=== PATIENT | female | born 1990 | race African-American/Black ===

== ENCOUNTER 2016-08-10 20:28 | Emergency (ER) | payer MEDICAID ==
[~2016-08-10] VITALS: Ht 160 cm; Wt 84.0 kg
[2016-08-10] MEDS ORDERED: FAMOTIDINE 20MG/2ML VIAL IV ONE (21:00)
[2016-08-10] MEDS ORDERED: EPINEPHRINE 1:1000 1 MG/ML AMP INJ ONE (21:00)
[2016-08-10] MEDS ORDERED: METHYLPREDNISOLONE SOD SUCC 125 MG/2 ML VIAL IV ONE (21:00)
[2016-08-10] MEDS ORDERED: DIPHENHYDRAMINE 50MG/ML VIAL IV ONE (21:00)
[2016-08-11 00:52] VITALS: BP 106/63
== END 2016-08-11 01:05 | disposition home or self-care (01) ==
LOC: ER 20:29
DX: T78.09XA Anaphylactic reaction due to other food products, initial encounter (principal); Z98.890 Other specified postprocedural states
CPT/HCPCS: 96372; 96374; 96375; 99291; J0171; J1200; J2930; J3490; Z7610

== ENCOUNTER 2018-08-09 19:16 | Emergency (ER) | payer MEDICAID ==
[~2018-08-09] VITALS: Ht 160 cm; Wt 91.0 kg
[2018-08-09 23:05] VITALS: BP 110/58
== END 2018-08-10 00:50 | disposition left against medical advice (07) ==
LOC: ER 19:16
DX: G43.909 Migraine, unspecified, not intractable, without status migrainosus (principal); R10.9 Unspecified abdominal pain; Z53.21 Procedure and treatment not carried out due to patient leaving prior to being seen by health care provider

== ENCOUNTER 2025-03-24 18:06 | Emergency (ER) | payer OTHER, MEDICAID ==
[~2025-03-24] VITALS: Ht 170.2 cm; Wt 91.0 kg
[2025-03-24 18:12] VITALS: O2SAT 99
[2025-03-24] MEDS ORDERED: IBUP-1455 MT (20:33)
[2025-03-24] MEDS ORDERED: ACET-2708 MT (20:33)
[2025-03-24] MEDS ORDERED: LIDO-53 TP (20:33)
[2025-03-24] MEDS: KETOROLAC 30MG/ML VIAL IM ONE (20:55)
[2025-03-24] MEDS: ACETAMINOPHEN 500MG TABLET PO ONE (20:56)
[2025-03-24] MEDS: LIDOCAINE 5% PATCH TOP SCH (20:56)
[2025-03-24 21:16] VITALS: BP 139/70; PULSE 71; RESP 18; TEMP 37.1; O2SAT 99
== END 2025-03-24 21:20 | disposition home or self-care (01) ==
LOC: ER 18:06
DX: S83.90XA Sprain of unspecified site of unspecified knee, initial encounter (principal); I10 Essential (primary) hypertension; Z91.013 Allergy to seafood; Z98.890 Other specified postprocedural states; X58.XXXA Exposure to other specified factors, initial encounter; Y93.89 Activity, other specified; Y92.89 Other specified places as the place of occurrence of the external cause; Y99.8 Other external cause status
CPT/HCPCS: 81025; 73552; 72170; 73560; 73600; 96372; 99284; J1885; Z7610